=== PATIENT | male | born 1990 | race African-American/Black ===

== ENCOUNTER 2022-03-31 03:04 | Emergency (ER) | payer MEDICAID ==
[~2022-03-31] VITALS: Ht 177.8 cm; Wt 82.0 kg
[2022-03-31 03:50] VITALS: BP 108/56
== END 2022-03-31 04:37 | disposition home or self-care (01) ==
LOC: ER 03:07
DX: G40.909 Epilepsy, unspecified, not intractable, without status epilepticus (principal); Z91.14 Patient's other noncompliance with medication regimen; R03.0 Elevated blood-pressure reading, without diagnosis of hypertension
CPT/HCPCS: 82962; 99283